=== PATIENT | male | born 1995 | race Caucasian/White ===

== ENCOUNTER 2020-10-07 04:24 | Emergency (ER) | payer OTHER, SELFPAY ==
--- NOTE | ~2020-10-07 | XR_ITS ---
EXAMINATION: XR chest 1V portable DATE: 10/07/2020 04:57 INDICATION: Upper respiratory tract infection. COVID exposure. Body aches. TECHNIQUE: frontal view of the chest was obtained. COMPARISON: Chest radiograph dated 07/16/2019 FINDINGS: The lungs remain clear with no focal airspace opacities, pulmonary edema, pleural effusion or pneumot horax. The cardiomediastinal silhouette is normal. Visualized bones and soft tissues are unremarkable . IMPRESSION: 1. No acute cardiopulmonary disease. Reviewed, dictated and finalized at location A.
[2020-10-07 04:27] VITALS: BP 117/61; PULSE 96; RESP 18; TEMP 35.2; O2SAT 97
[2020-10-07 04:32] VITALS: TEMP 36.7
--- NOTE | 2020-10-07 04:35 | ED.URI ---
HPI - URI/Sore Throat General Chief Complaint: Upper Respiratory Infection Stated Complaint: uri Time Seen by Provider: 10/07/20 04:26 History of Present Illness HPI Narrative: 25 yo male w/ no past medical history presents to the ED for URI symptoms. He has cough, congestion, body aches, nausea, and diarrhea. He has known exposure to and individual with COVID-19. No CP, SOB. Related Data Allergies Allergy/AdvReac Type Severity Reaction Status Date / Time No Known Allergies Allergy Mild Unverified 10/07/20 04:31 Review of Systems Review of Systems: All systems reviewed & are unremarkable except as noted in HPI and below Constitutional: Constitutional: Reports chills and Reports fatigue ENT: Denies dizziness and Denies sore throat Cardiovascular: Cardiovascular: Denies chest pain Respiratory: Respiratory: Reports chest congestion and Reports cough Gastrointestinal: Gastrointestinal: Reports diarrhea and Reports nausea Genitourinary: Genitourinary: Reports no additional male genitourinary complaints Musculoskeletal: Musculoskeletal: Reports myalgias Neurologic: Reports system reviewed and no additional complaints, except as documented [facility] Social History Social History Smoking status: Current every day smoker Gender identity (if verbalized by the patient): Male Sexual Orientation (if Verbalized by the Patient): Straight or Heterosexual Exam Const: General: no acute distress, alert and ill appearing Nutritional Appearance: thin Orientation/consciousness: patient oriented x3 HENMT: Head: normal to inspection Neck: Neck: normal visual inspection and lymphadenopathy noted Resp: Effort & Inspection: normal respiratory effort Auscultation: clear to auscultation bilaterally Cardio: Rate: regular rate Rhythm: regular rhythm GI: GI Palp: Yes Soft to palpation and No Tenderness to palpation present (GI) Skin: General skin exam: normal color Neuro: General: patient oriented x3, moves all extremities and no focal motor deficits Speech: normal speech Gait exam (Neuro): Normal gait present Extrem: General: normal to inspection Course Vital Signs Vital signs: Vital Signs Temperature 35.2 C L 10/07/20 04:27 Pulse Rate 96 10/07/20 04:27 Respiratory Rate 18 10/07/20 04:27 Blood Pressure 117/61 10/07/20 04:27 Pulse Oximetry 97 10/07/20 04:27 Temperature 36.7 C 10/07/20 04:32 Pulse Rate 96 10/07/20 04:27 Respiratory Rate 18 10/07/20 04:27 Blood Pressure 117/61 10/07/20 04:27 Pulse Oximetry 97 10/07/20 04:27 MDM - URI/Sore Throat MDM Narrative Medical decision making narrative: Positive for flu B Differential Diagnosis Differential diagnosis: Likely upper respiratory infection, viral infection, influenza and other (COVID) Lab Data Attestation: I reviewed the patient's lab results. Labs: Influenza A Screen Negative Reference Range: Negative Influenza B Screen Positive Reference Range: Negative Imaging Data My impression: Negative chest x-ray Discharge Plan Discharge Clinical Impression: Influenza B Patient Disposition: Home, Self-Care Condition: Stable Instructions: Influenza (ED) Prescriptions: New ondansetron HCl [Zofran] 4 mg tablet 4 mg PO Q6H PRN (Reason: nausea and vomiting) Qty: 10 RF: 0 naproxen 500 mg tablet 500 mg PO BID PRN (Reason: pain or fever) Qty: 30 RF: 0 Follow-up/Referrals: Smooth Carrero MD [Physician] - UNKNOWN,DOCTOR [Primary Care Provider] - Stand Alone Forms: Work/School Release IP
[2020-10-07] MEDS: KETOROLAC (*BKC) 60 MG/2 ML VIAL IM (04:55)
[2020-10-07] MEDS: ONDANSETRON HCL ODT 4 MG TABLET PO (04:56)
[2020-10-07 05:20] VITALS: BP 108/63; PULSE 71; RESP 16; TEMP 36.7; O2SAT 98
[2020-10-07 17:33] LABS: SARS-CoV-2 RNA PCR Negative
== END 2020-10-07 05:21 | disposition home or self-care (01) ==
LOC: ANHED 05:08
PROVIDERS: Emergency Provider Emergency Medicine
DX: J10.1 Influenza due to other identified influenza virus with other respiratory manifestations (principal); Z20.822 Contact with and (suspected) exposure to COVID-19; F17.200 Nicotine dependence, unspecified, uncomplicated
CPT/HCPCS: 71045; 87804; 99283; A9270; C9803; J1885; U0003; U0005

== ENCOUNTER 2023-03-13 04:03 | Emergency (ER) | payer MEDICAID, SELFPAY ==
--- NOTE | ~2023-03-13 | XR_ITS ---
EXAMINATION: XR elbow RT 2V DATE: 03/13/2023 05:16 INDICATION: Right elbow pain and redness and swelling. TECHNIQUE: 2 views of right elbow were obtained. COMPARISON: None. FINDINGS: Bone alignment is normal. No fracture. Joint spaces are normal. No elbow joint effusion. Th ere is soft tissue swelling overlying the olecranon, consistent with bursitis. IMPRESSION: 1. Olecranon bursitis. Reviewed, dictated and finalized at location A. IMPRESSION: 1. Olecranon bursitis.
[2023-03-13 04:15] VITALS: BP 138/83; PULSE 109; RESP 14; TEMP 36.7; O2SAT 99
[2023-03-13] MEDS: DOXYCYCLINE HYCLATE 100 MG TABLET PO (04:43)
[2023-03-13] MEDS: HYDROcodone/acetaminophen (*CRX) 5-325 MG TABLET 1 TAB PO (04:44)
[2023-03-13 04:48] LABS: Basophils Absolute Auto 0.1 K/mm3 (0.0-0.1); Basophils Percent Auto 0.5 % (0.2-1.2); Eosinophils Absolute Auto 0.1 K/mm3 (0-0.3); Eosinophils Percent Auto 0.9 % (0-4.4); Hematocrit 40.8 % (42.0-52.0); Hemoglobin 13.8 g/dL (14.0-18.0); Immature Granulocyte Absolute 0.03 K/mm3 (0.00-0.031); Immature Granulocyte Percent A 0.3 % (0-0.5); Lymphocytes Absolute Auto 2.85 K/mm3 (0.9-3.2); Lymphocytes Percent Auto 24.8 % (18.3-44.2); Mean Corpuscular HGB Conc 33.8 g/dl (32-36); Mean Corpuscular Hemoglobin 32.7 pg (26-34); Mean Corpuscular Volume 96.7 fl (80-100); Mean Platelet Volume 8.9 fl (7.4-10.4); Monocytes Absolute Auto 1.1 K/mm3 (0.1-0.6); Monocytes Percent Auto 9.6 % (2.6-8.5); Neutrophils Absolute Auto 7.4 K/mm3 (1.3-6.7); Neutrophils Percent Auto 63.9 % (45.5-73.1); Platelet Count Result 368 k/mm3 (150-375); Red Blood Count 4.22 M/mm3 (4.6-6.20); Red Cell Distribution Width 13.1 % (11.5-14.5); White Blood Count 11.5 K/mm3 (4.5-10.0)
[2023-03-13 04:59] LABS: Alanine Aminotransferase 25 U/L (6-50); Albumin Level 4.1 g/dL (3.5-5.1); Alkaline Phosphatase 45 U/L (38-126); Anion Gap 7 mmol/L (8-16); Aspartate Amino Transferase 32 U/L (17-59); Bilirubin,Total 0.3 mg/dL (0.2-1.3); Blood Urea Nitrogen 20 mg/dL (9-20); Calcium 8.4 mg/dL (8.4-10.2); Carbon Dioxide 29 mmol/L (22-30); Chloride 101 mmol/L (98-107); Estimated Glomerular Filt Rate > 60; Glucose 117 mg/dL (65-110); Potassium 3.9 mmol/L (3.4-5.0); Sodium 137 mmol/L (137-145)
--- NOTE | 2023-03-13 05:15 | ED.WOUNDLAC ---
HPI - Wound/Laceration General Chief Complaint: Wound/Laceration Stated Complaint: R elbow wound Time Seen by Provider: 03/13/23 04:22 History of Present Illness HPI narrative: Patient presents to the emergency department with concern for right elbow pain and swelling. He has a wound with focal fluctuance. Swelling noted but minimal erythema. Patient immediately stated that he does not do drugs . Then he says that things are crawling out of his elbow . Also points to his fingers with concern for decreased blood flow. Pulses are normal and cap refill is normal. He is accompanied by a friend with similar complaint Related Data Allergies Allergy/AdvReac Type Severity Reaction Status Date / Time No Known Allergies Allergy Mild Unverified 10/07/20 04:31 Review of Systems Review of Systems: Review of systems negative except for what is documented in the [facility] Social History Social History Smoking status: Current every day smoker Gender identity (if verbalized by the patient): Male Sexual Orientation (if Verbalized by the Patient): Straight or Heterosexual Exam Narrative: GENERAL: Well-appearing, well-nourished, and in no acute distress. HEAD: Normocephalic, atraumatic. EYES: PERRLA and EOMI. ENT: Nares clear, no rhinorrhea or epistaxis. Mucous membranes moist. NECK: Supple. CHEST: Clear to auscultation. No respiratory distress. HEART: Regular rate and rhythm. ABDOMEN: Soft, nontender, nondistended. EXTREMITIES: Normal range of motion. swelling and tenderness to right elbow with small fluctuance SKIN: Warm, dry, no rash. NEURO: No focal deficits. Alert and oriented x3. PSYCH: Normal mood and affect. Course Course Emergency Course: Presentation consistent with abscess and cellulitis. Inflammation localized to skin and does not involve entire elbow we will plan to drain Vital Signs Vital signs: Vital Signs Temperature 36.7 C 03/13/23 04:15 Pulse Rate 109 H 03/13/23 04:15 Respiratory Rate 14 03/13/23 04:15 Blood Pressure 138/83 03/13/23 04:15 Pulse Oximetry 99 03/13/23 04:15 Oxygen Delivery Room Air 03/13/23 04:15 Temperature 36.7 C 03/13/23 04:15 Pulse Rate 91 03/13/23 05:33 Respiratory Rate 14 03/13/23 05:33 Blood Pressure 135/82 03/13/23 05:33 Pulse Oximetry 100 03/13/23 05:33 Oxygen Delivery Room Air 03/13/23 04:15 Procedures Abscess I/D upper extremity: Date of Incision: 03/13/23 Side (if applicable): right Local Anesthetic: lidocaine 1% Amount of anesthesia used (mL): 1 Amount of fluid expressed (mL): 0 MDM - Wound/Laceration MDM Narrative Medical decision making narrative: Attempted to drain fluid from small area of induration on right elbow. No fluid present. Skin findings noted but superficial. Elbow joint not generally swollen. Patient afebrile and white count 11. Given doxycycline in the emergency department. Will DC with antibiotics and advised strict return precautions. Shared decision making with patient regarding plan for outpatient care. Lab Data 03/13/23 04:42 03/13/23 04:42 Labs: Lab Results 03/13/23 Range/Units 04:42 WBC 11.5 H (4.5-10.0) K/mm3 RBC 4.22 L (4.6-6.20) M/mm3 Hgb 13.8 L (14.0-18.0) g/dL Hct 40.8 L (42.0-52.0) % MCV 96.7 (80-100) fl MCH 32.7 (26-34) pg MCHC 33.8 (32-36) g/dl RDW 13.1 (11.5-14.5) % Plt Count 368 (150-375) k/mm3 MPV 8.9 (7.4-10.4) fl Immature Gran % (Auto) 0.3 (0-0.5) % Neut % (Auto) 63.9 (45.5-73.1) % Lymph % (Auto) 24.8 (18.3-44.2) % Owsley % (Auto) 9.6 H (2.6-8.5) % Eos % (Auto) 0.9 (0-4.4) % Baso % (Auto) 0.5 (0.2-1.2) % Lymph # (Auto) 2.85 (0.9-3.2) K/mm3 Owsley # (Auto) 1.1 H (0.1-0.6) K/mm3 Eos # (Auto) 0.1 (0-0.3) K/mm3 Baso # (Auto) 0.1 (0.0-0.1) K/mm3 Abs Immat Gran (auto) 0.03 (0.00-0.031)
[2023-03-13 05:33] VITALS: BP 135/82; PULSE 91; RESP 14; O2SAT 100
== END 2023-03-13 07:00 | disposition home or self-care (01) ==
PROVIDERS: Emergency Provider Emergency Medicine
DX: L02.413 Cutaneous abscess of right upper limb (principal); F17.200 Nicotine dependence, unspecified, uncomplicated
CPT/HCPCS: 10060; 36415; 73070; 80053; 85025; 87070; 87147; 87186; 87205; 99283; A9270

== ENCOUNTER 2023-04-02 18:48 | Emergency (ER) | payer MEDICAID, SELFPAY ==
--- NOTE | ~2023-04-02 | CT_ITS ---
EXAMINATION: CT abd pelvis lumbar w con DATE: 04/02/2023 20:05 INDICATION: fall from 7 feet onto back TECHNIQUE: Computed tomography (CT) of the abdomen and pelvis and lumbar spine was performed with 100 mL Omnipaque-350 intravenous contrast. Automated exposure control and iterative reconstruction techn ique were employed. The dose-length product was 412.53 mGy-cm. COMPARISON: CT T-spine performed on the same date. FINDINGS: Motion artifact in the upper abdomen. Lower thorax: Motion artifact obscures detail in the lungs. Liver: Evaluation somewhat limited by motion artifact. Grossly normal. Biliary/Gallbladder: Gallbladder is normal. No bile duct dilation. Pancreas: No mass or duct dilation. Spleen: Evaluation limited by motion artifact. No overt abnormality. Adrenals:No mass. Kidneys: No suspicious mass, obstructing stone, or hydronephrosis. GI tract: No small or large bowel dilation. Normal appendix. Mesentery/Peritoneum: No ascites, mass, or free air. Retroperitoneum: No mass. Pelvis: Pelvic organs are within normal limits. Soft Tissues: Soft tissues and body wall unremarkable. Bones (extraspinal): Mildly displaced left posterior 12th rib fracture. LUMBAR SPINE: Transitional anatomy. 6 nonrib-bearing lumbar-type vertebral bodies. The last fully formed disc will be designated L6-S1. Hypoplastic rib on the right and unfused transverse process on the left at L1. P artial sacralization on the left at L6. Vertebral body alignment and vertebral body heights maintaine d. Facets are aligned. Disc space narrowing at L6-S1. Nondisplaced left transverse process fractures at L2 and L3. IMPRESSION: Motion limited evaluation of the upper abdomen, particularly of the spleen. Within this constraint, n o definite perisplenic fluid, abdominopelvic fluid, or obvious splenic or other acute intra-abdominal injury. Nondisplaced left posterior 12th rib fracture. Transitional anatomy of the spine. Nondisplaced fractures of the left L2 and L3 transverse processes. Reviewed, dictated and finalized at location K. IMPRESSION: Motion limited evaluation of the upper abdomen, particularly of the spleen. Wit hin this constraint, no definite perisplenic fluid, abdominopelvic fluid, or ob vious splenic or other acute intra-abdominal injury. Nondisplaced left posterior 12th rib fracture. Transitional anatomy of the spine. Nondisplaced fractures of the left L2 and L3 transverse processes.
--- NOTE | ~2023-04-02 | XR_ITS ---
EXAMINATION: XR chest 1V Exam Date/Time: 04/02/2023 20:02 CDT HISTORY: fall Comparison: 10/07/2020. RESULT: Lines, tubes, and devices: None. Lungs and pleura: Clear. Cardiomediastinal silhouette: Stable. Other: No acute abdominal finding. Minimally displaced left posterior 12th rib fracture. IMPRESSION: No acute cardiopulmonary process. Minimally displaced left posterior 12th rib fracture Reviewed, dictated and finalized at location K. IMPRESSION: No acute cardiopulmonary process. Minimally displaced left posterior 12th rib f racture
--- NOTE | ~2023-04-02 | CT_ITS ---
EXAMINATION: CT cervical spine wo con DATE: 04/02/2023 19:54 INDICATION: fall, spinal injury TECHNIQUE: Computed tomography (CT) of the cervical spine was performed without intravenous contrast. Automated exposure control and iterative reconstruction technique were employed. The dose-length pro duct was 498.14 mGy-cm. COMPARISON: None. FINDINGS: Vertebral Body Alignment: Intact. Craniocervical and atlantoaxial alignment: No significant degenerative change. Alignment intact. Osseous structures/fracture: No evidence of a lytic or blastic process in the visualized spine. No e vidence of acute fracture. Cervical soft tissues: The paraspinal soft tissues planes are maintained. Degenerative changes: No significant degenerative changes. IMPRESSION: No acute fracture or traumatic malalignment in the cervical spine. Reviewed, dictated and finalized at location K.
--- NOTE | ~2023-04-02 | CT_ITS ---
EXAMINATION: CT thoracic spine wo con DATE: 04/02/2023 20:04 INDICATION: spinal injury . TECHNIQUE: Computed tomography (CT) of the thoracic spine was performed without intravenous contrast. Automated exposure control and iterative reconstruction technique were employed. The dose-length pro duct was 1474.39 mGy-cm. COMPARISON: CT C-spine and L-spine performed on the same date. FINDINGS: Transitional anatomy. 12 rib bearing thoracic type vertebral bodies. Hypoplastic rib on the right and unfused transverse process on the left at L1. Mildly displaced left posterior 12th rib fra cture. Vertebral body heights and alignment are maintained. Facets are aligned. Normal disc spaces. IMPRESSION: No acute fracture or traumatic malalignment detected in the thoracic spine. Mildly displaced left posterior 12th rib fracture. Reviewed, dictated and finalized at location K.
--- NOTE | ~2023-04-02 | CT_ITS ---
EXAMINATION: CT brain wo con DATE: 04/02/2023 19:51 INDICATION: fall . TECHNIQUE: Computed tomography (CT) of the head was performed without intravenous contrast. The mA wa s adjusted according to patient size. Iterative reconstruction technique was employed. The dose-lengt h product was 1210.67 mGy-cm. COMPARISON: None. FINDINGS: No acute intracranial hemorrhage or extra-axial fluid collection. No hydrocephalus, mass, or herniation. No acute ischemic infarct. Unremarkable dural venous sinus attenuation. No acute osseous abnormality. The aerated spaces are clear. IMPRESSION: No acute intracranial process. Reviewed, dictated and finalized at location K.
[2023-04-02 18:50] VITALS: BP 115/54; PULSE 82; RESP 19; TEMP 36.8; O2SAT 98
[2023-04-02 18:57] VITALS: O2SAT 98
[2023-04-02] MEDS: LACTATED RINGERS 1,000 ML 999 ML IV CONT (19:18)
[2023-04-02] MEDS: ONDANSETRON INJ 4 MG/2 ML VIAL IV PUSH (19:18)
[2023-04-02] MEDS: MORPHINE SULFATE (*CRX) 4 MG/ML INJ IV PUSH (19:18)
[2023-04-02 19:25] LABS: Basophils Percent Auto 0.5 % (0.2-1.2); Eosinophils Absolute Auto 0.1 K/mm3 (0-0.3); Eosinophils Percent Auto 1.1 % (0-4.4); Hematocrit 41.6 % (42.0-52.0); Immature Granulocyte Absolute 0.04 K/mm3 (0.00-0.031); Immature Granulocyte Percent A 0.5 % (0-0.5); Lymphocytes Absolute Auto 1.87 K/mm3 (0.9-3.2); Lymphocytes Percent Auto 21.3 % (18.3-44.2); Mean Corpuscular HGB Conc 33.7 g/dl (32-36); Mean Corpuscular Hemoglobin 32.6 pg (26-34); Mean Platelet Volume 9.6 fl (7.4-10.4); Monocytes Absolute Auto 0.6 K/mm3 (0.1-0.6); Monocytes Percent Auto 7.1 % (2.6-8.5); Neutrophils Absolute Auto 6.1 K/mm3 (1.3-6.7); Neutrophils Percent Auto 69.5 % (45.5-73.1); Platelet Count Result 385 k/mm3 (150-375); Red Blood Count 4.29 M/mm3 (4.6-6.20); Red Cell Distribution Width 12.9 % (11.5-14.5); White Blood Count 8.8 K/mm3 (4.5-10.0)
[2023-04-02 19:36] LABS: Alanine Aminotransferase 39 U/L (6-50); Albumin Level 4.3 g/dL (3.5-5.1); Alkaline Phosphatase 45 U/L (38-126); Anion Gap 10 mmol/L (8-16); Aspartate Amino Transferase 53 U/L (17-59); Bilirubin,Total 0.8 mg/dL (0.2-1.3); Blood Urea Nitrogen 16 mg/dL (9-20); Carbon Dioxide 24 mmol/L (22-30); Chloride 104 mmol/L (98-107); Estimated CRCL calculation 151 ml/min; Estimated Glomerular Filt Rate > 60; Glucose 104 mg/dL (65-110); Potassium 3.3 mmol/L (3.4-5.0); Sodium 138 mmol/L (137-145)
[2023-04-02 19:39] LABS: INR 1.1; Prothrombin Time 14.2 Seconds (11.1-14.7)
[2023-04-02 19:40] LABS: Partial Thromboplastin Time 24.1 SECONDS (22.3-36.8)
--- NOTE | 2023-04-02 19:55 | ED.GENADULT ---
HPI - General Adult General Chief complaint: Trauma Stated complaint: trauma, fall - back injury Time Seen by Provider: 04/02/23 18:57 Source: patient, EMS and RN notes reviewed Mode of arrival: EMS Limitations: no limitations History of Present Illness HPI narrative: This is a 28 year old male who presents for evaluation of left back pain s/p fall . PAtient was at his mother's house when he accidentally fall off stairs onto his his back. He states the stairs were 7 feet high. He denies LOC or hitting his head. He reports difficulty walking due to pain. He denies leg weakness, numbness or tingling. He reports pain with walking. He denies abdominal pain, chest pain, shortness of breath. He denies taking any medications. Related Data Allergies Allergy/AdvReac Type Severity Reaction Status Date / Time No Known Allergies Allergy Mild Verified 04/02/23 18:57 Review of Systems Constitutional: Constitutional: Denies weakness Cardiovascular: Cardiovascular: Denies syncope, Denies rapid heart rate, Denies irregular heart rhythm, Denies leg edema and Denies dyspnea Respiratory: Respiratory: Denies chest congestion, Denies hemoptysis, Denies excessive phlegm production and Denies dyspnea Gastrointestinal: Gastrointestinal: Denies abdominal pain, Denies hematochezia, Denies diarrhea and Denies vomiting Genitourinary: Genitourinary: Denies hematuria, Denies dysuria, Denies penile discharge and Denies testicular pain Musculoskeletal: Musculoskeletal: Reports back pain, Denies joint swelling, Denies loss of height and Denies muscle weakness Neurologic: Denies syncope, Denies focal weakness and Denies weakness PMFSH Past Medical History Medical History (Updated 04/03/23 @ 00:00 by Background Daemon) Patient denies medical problems Social History Social History Smoking status: Current every day smoker Gender identity (if verbalized by the patient): Male Sexual Orientation (if Verbalized by the Patient): Straight or Heterosexual Exam Const: General: no acute distress and alert Nutritional Appearance: well nourished Orientation/consciousness: patient oriented x3 HENMT: Head: normal to inspection Face and sinus: normal facial exam Mouth: Yes Normal oral and palatal mucosa present, Yes lip normal and Yes moist mucous membranes Throat: posterior oropharynx normal and uvula midline Other: tattoos to his face Eyes: Pupils: Equal, round and reactive pupils present EOM: EOMs intact bilaterally Neck: Other: in c collar Chest: Chest palpation & inspection: normal inspection of the chest Resp: Effort & Inspection: normal respiratory effort Auscultation: clear to auscultation bilaterally Cardio: Rate: regular rate Rhythm: regular rhythm Heart sounds: no murmurs GI: GI Palp: Yes Soft to palpation, No Tenderness to palpation present (GI), No Guarding due to palpation present (GI) and No Rigid due to palpation Auscultation: normal bowel sounds Back/Spine/Pelvis: Cervical Spine: collar present, No cervical muscular tenderness and No Cervical spine tenderness Thoracic/Lumbar Spine: lumbar spinal tenderness Pelvis: no pain with anterior-posterior compression and no pain with lateral compression Skin: General skin exam: normal color Neuro: General: patient oriented x3, moves all extremities and CN's II-XI intact bilaterally Extrem: General: normal to inspection Psych: Mental Status: mental status grossly normal Affect: normal affect Attitude: cooperative Course Reevaluation(s) Reevaluation #1: I Discussed with patient that he was found to have 12 rib fracture and transverse process fracture to L2-L3, no other acute fracture. I discussed with patient that main treatment is pain control. He states he is in a lot of pain but he refuses admission. He was able to ambulate per nurse with crutches. He states is not going to get admitted Date: 04/02/23 Time:
[2023-04-02] MEDS: HYDROmorphone HCL INJ (*CRX) 1 MG/ML SYR 0.5 MG IV PUSH (20:19)
[2023-04-02] MEDS: oxyCODONE/ACETAMINOPHEN (*CRX) 5-325 MG TABLET 1 TABLET PO (22:37)
[2023-04-02 22:53] VITALS: BP 148/82; PULSE 99; RESP 15; O2SAT 100
== END 2023-04-02 22:54 | disposition home or self-care (01) ==
PROVIDERS: Emergency Provider General Practice
DX: S22.32XA Fracture of one rib, left side, initial encounter for closed fracture (principal); S32.029A Unspecified fracture of second lumbar vertebra, initial encounter for closed fracture; S32.039A Unspecified fracture of third lumbar vertebra, initial encounter for closed fracture; W10.9XXA Fall (on) (from) unspecified stairs and steps, initial encounter; F17.210 Nicotine dependence, cigarettes, uncomplicated
CPT/HCPCS: 36415; 70450; 71045; 72125; 72128; 72132; 74177; 80053; 85025; 85610; 85730; 96361; 96374; 96375; 99284; A9270; J1170; J2270; J2405; J7120; L0140; Q9967

== ENCOUNTER 2025-05-14 13:02 | Emergency (ER) | payer MEDICAID, SELFPAY ==
--- OUTSIDE RECORDS SUMMARY | 2025-04-21 10:00 | XMS_ITS ---
Author Organization [facility] Address [address] [place] [address] Care Team Providers Care Education Consultant Name Role Phone Kashmir Benoit Primary Care Provider [phone] Christelle Galdamez [phone] REASON FOR VISIT 2 Week F/U on CRU Social History Sex Assigned At : Social History Observation Description Sex Assigned At Male Encounters Encounter Location Date Provider Diagnosis [facility] [address] [place] [address] 04/21/2025 Christelle Galdamez Plan Of Treatment Next Appt Details Provider Name:Ernesto vora, 05/21/2025 10:00:00 AM, [address], [place], [address], Progress Notes * Lisbet SPIVEYOB:[birth year] (30 yo M)Acc No.[id number]:04/21/2025 UNLOCKED PROGRESS NOTE Patient: Jim GUIDRY Provider: Mora Galdamez, MSN, ROOFING SALES REPRESENTATIVE, BUSINESS PROFESSOR-C :1995 A ge:30 Y S ex:Male Date:04/21/2025 Address:[facility] [place], [place] Pcp:Kashmir Benoit Subjective: * Chief Complaints: * 1 . 2 Week F/U on CRU. * Medical History: Objective: * Vitals: Assessment: Plan: * Treatment: * Care Plan Details* * Electronic signature of Krysta Galdamez APRN, [id number] on 05/14/2025 at 07:50 PM [facility] Sign off status: Pending * Provider: ANETTE Vega, DAVIE, BUSINESS PROFESSOR-C Date: Generated for Kamaljit gramajo/Juanjo/Andrew on: 07/14/2024 07:50 PM [facility]
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
--- NOTE | ~2025-05-14 | XR_ITS ---
Examination: XR chest 2V Clinical History: cp, LT SIDED CP, HEADACHE Comparison: 04/02/2023 Technique: PA and Lateral Findings: Cardiomediastinal silhouette normal size and configuration. Lungs clear. No acute bony abnormality. IMPRESSION: 1. No acute cardiopulmonary findings. Reviewed, dictated and finalized at location R. TRON[employer] NEWS GATHERING EDITOR
--- NOTE | 2025-05-14 13:02 | ECG_ITS ---
Test Date: 2025-05-14 13:09:41 Measurements Intervals [place] Rate: 84 P: 44 [place]: 127 QRS: 29 QRSD: 86 T: 21 QT: 327 QTc: 388 Interpretive Statements SINUS RHYTHM No previous ECG available for comparison Electronically Signed On 05-14-2025 13:37:00 INSPECTOR AND HAND PACKAGER by Steven Chew M.D.
[2025-05-14 13:07] VITALS: BP 116/66; PULSE 92; RESP 18; TEMP 36.8; O2SAT 99
[2025-05-14 14:21] LABS: Hematocrit 34.6 % (42.0-52.0); Hemoglobin 11.7 g/dL (14.0-18.0); Immature Granulocyte Percent A 0.4 % (0-0.5); Lymphocytes Absolute Auto 2.38 K/mm3 (0.9-3.2); Mean Corpuscular HGB Conc 33.8 g/dl (32-36); Mean Corpuscular Hemoglobin 31.5 pg (26-34); Mean Corpuscular Volume 93.0 fl (80-100); Nucleated Red Blood Cells Absolute Auto 0.000 K/mm3 (0.0-0.012); Nucleated Red Blood Cells Perc 0.0 % (0.0-0.2); Platelet Count Result 313 k/mm3 (150-375); Red Blood Count 3.72 M/mm3 (4.6-6.20); White Blood Count 7.3 K/mm3 (4.5-10.0)
[2025-05-14 14:30] LABS: Alanine Aminotransferase 89 U/L (6-50); Albumin Level 4.2 g/dL (3.5-5.1); Alkaline Phosphatase 49 U/L (38-126); Anion Gap 7 mmol/L (4-12); Aspartate Amino Transferase 67 U/L (17-59); Bilirubin,Total 0.5 mg/dL (0.2-1.3); Blood Urea Nitrogen 22 mg/dL (9-20); Calcium 9.0 mg/dL (8.4-10.2); Carbon Dioxide 27 mmol/L (22-30); Chloride 100 mmol/L (98-107); Estimated CRCL calculation 115 ml/min; Estimated Glomerular Filt Rate > 60; Glucose 91 mg/dL (65-110); INR 1.1; Lipase 29 U/L (23-300); Potassium 4.8 mmol/L (3.4-5.0); Prothrombin Time 14.0 Seconds (11.1-14.7); Sodium 134 mmol/L (137-145); Total Protein 7.0 g/dL (6.3-8.2)
[2025-05-14 14:31] LABS: Partial Thromboplastin Time 28.1 Seconds (22.3-36.8)
[2025-05-14 14:42] LABS: Troponin I < 0.012 ng/mL (0.000-0.034)
--- NOTE | 2025-05-14 15:13 | ED.CHESTPAIN ---
HPI - Chest Pain General Chief Complaint: Chest Pain <Little Bhardwaj PA-C - Last Filed: 05/16/25 14:15> Stated Complaint: cp, sob <Little Bhardwaj PA-C - Last Filed: 05/16/25 14:15> Time Seen by Provider: 05/14/25 15:13 <Little Bhardwaj PA-C - Last Filed: 05/16/25 14:15> Focused HPI: This is a 30 year old male that presents to the ER for chest pain. Reports left sided chest pain with associated shortness of breath. Ongoing over the last couple of hours. Reports the pain is sharp in nature. Also reports a headache. GENERAL: Well-appearing, well-nourished, and in no acute distress. HEAD: Normocephalic, atraumatic. CHEST: No respiratory distress. HEART: Regular rate NEURO: ?Alert and oriented x3. Patient screened in triage and initial orders placed.? ?Additional care and disposition to be based upon?diagnostic testing and treatment. <Little Bhardwaj PA-C - Last Filed: 05/16/25 14:15> History of Present Illness HPI narrative: Agree with HPI. Pain has improved significantly on my evaluation. Chest pain was pleuritic in nature. <DO Jessa Don Last Filed: 05/14/25 23:11> Related Data Allergies/Adverse Reactions: Allergies Allergy/AdvReac Type Severity Reaction Status Date / Time No Known Allergies Allergy Mild Verified 05/14/25 13:10 <Little Bhardwaj PA-C - Last Filed: 05/16/25 14:15> Review of Systems Review of Systems: Gen.: Denies fevers or chills Eyes: Denies eye pain or visual change ENT: Denies congestion Respiratory: As per HPI CV: As per HPI GI: Denies abdominal pain nausea, emesis or diarrhea denies burning, urgency, frequency or hematuria Musculoskeletal: Denies back pain or muscle pain Neuro: Denies numbness, tingling, weakness or focal weakness Skin: Denies rash Except as documented, all other systems reviewed and negative <Patric Gonzales DO - Last Filed: 05/14/25 23:11> PMFSH Past Medical History Medical History: Medical History History of anxiety History of depression <Little Bhardwaj PA-C - Last Filed: 05/16/25 14:15> Social History Social History: Social History Smoking status: Current every day smoker Tobacco type: e-cigarettes/vaping Substance use: former Gender identity (if verbalized by the patient): Male Sexual Orientation (if Verbalized by the Patient): Straight or Heterosexual <Little Bhardwaj PA-C - Last Filed: 05/16/25 14:15> Exam Narrative: APPEARANCE: No acute distress, nontoxic, resting in bed EYES: EOMI HEENT: Normocephalic, atraumatic, OMM RESPIRATORY: No respiratory distress Clear to auscultation bilaterally with no rhonchi wheezing or rales. CARDIOVASCULAR: Regular rate and rhythm without murmurs rubs or gallops. Mild lower sternal chest wall tenderness to palpation. ABDOMINAL: Soft, nontender, nondistended, no rebound or guarding MUSCULOSKELETAl: Moves all extremities. No clubbing, cyanosis or edema. NEURO: Awake and alert. Following commands, speech normal, no focal deficits SKIN:: Warm, dry. No rashes lesions or abrasions PSYCHIATRIC: Normal affect/mood, <Patric Gonzales DO - Last Filed: 05/14/25 23:11> Course Vital Signs Vital signs: Vital Signs Temperature 98.2 F 05/14/25 13:07 Pulse Rate 92 05/14/25 13:07 Respiratory Rate 18 05/14/25 13:07 Blood Pressure 116/66 05/14/25 13:07 Pulse Oximetry 99 05/14/25 13:07 Oxygen Delivery Room Air 05/14/25 13:07 Temperature 98.2 F 05/14/25 13:07 Pulse Rate 79 05/14/25 17:12 Respiratory Rate 17 05/14/25 17:12 Blood Pressure 108/70 05/14/25 17:12 Pulse Oximetry 97 05/14/25 17:12 Oxygen Delivery Room Air 05/14/25 16:55 <Little Bhardwaj PA-C - Last Filed: 05/16/25 14:15> Vital Signs Temperature 98.2 F 05/14/25 13:07 Pulse Rate 92 05/14/25 13:07 Respiratory Rate 18 05/14/25 13:07 Blood Pressure 116/66 05/14/25 13:07 Pulse Oximetry 99 05/14/25 13:07 Oxygen Delivery Room Air 05/14/25 13:07 Temperature 98.2 F 05/14/25 13:07 Pulse Rate 79 05/14/25 17:12 Respiratory Rate 17 05/14/25 17:12 Blood Pressure 108/70 05/14/25 17:12 Pulse Oximetry 97 05/14/25 17:12 Oxygen Delivery Room Air 05/14/25 16:55 <Patric Gonzales DO - Last Filed: 05/14/25 23:11> MDM - Chest Pain MDM Narrative Medical decision making narrative: 30-year-old male Presenting for chest pain and anxiety. On initial evaluation patient was in no acute distress afebrile, hemodynamic stable. Differentials include but are not limited to: ACS, PE, PNA, bronchitis, costochondritis, pleurisy, viral syndrome, GERD Notable exam findings: Heart and lungs clear. Abdomen soft nontender. Notable lab findings: CBC without significant abnormalities. Mildly elevated transaminases. Troponin negative. Repeat troponin negative. Notable imaging findings: Chest x-ray showed no acute process. EKG without concerning findings. Patient ordered already had near resolution of his starks. He states that something he had tenderness to the lower sternum. He was given Toradol and Lidoderm. Patient's EKGs and labs are without significant high risk changes. Cardiac risk factors reviewed. Patient is felt likely low risk for ACS and reasonable for further risk stratification testing as an outpatient. Pain was not sudden or maximal in onset without tearing or ripping quality. No other signs of symptoms suggest aortic dissection. A low-risk Wells criteria is noted, PE is felt to be unlikely. No pneumonia seen on evaluation today. Patient is felt to be a reasonable candidate for continued evaluation as an outpatient. Patient was deemed appropriate for discharge at this time. Patient was given a prescription for Lidoderm. Patient was advised follow-up with their PCP in the next week for re-evaluation. Patient was agreeable to this plan. Given strict return precautions. <Patric Gonzales DO - Last Filed: 05/14/25 23:11> Medical Records Data Attestation: I reviewed the patient's medical records. <Patric Gonzales DO - Last Filed: 05/14/25 23:11> Lab Data Attestation: I reviewed the patient's lab results. <Patric Gonzales DO - Last Filed: 05/14/25 23:11> Result diagrams: 05/14/25 14:06 05/14/25 14:06 <Little Bhardwaj PA-C - Last Filed: 05/16/25 14:15> Labs: Lab Results 05/14/25 05/14/25 Range/Units 14:06 16:58 WBC 7.3 (4.5-10.0) K/mm3 RBC 3.72 L (4.6-6.20) M/mm3 Hgb 11.7 L (14.0-18.0) g/dL Hct 34.6 L (42.0-52.0) % MCV 93.0 (80-100) fl MCH 31.5 (26-34) pg MCHC 33.8 (32-36) g/dl RDW 13.0 (11.5-14.5) % Plt Count 313 (150-375) k/mm3 MPV 9.1 (7.4-10.4) fl Immature Gran % (Auto) 0.4 (0-0.5) % Neut % (Auto) 54.2 (45.5-73.1) % Lymph % (Auto) 32.7 (18.3-44.2) % Collier % (Auto) 9.1 H (2.6-8.5) % Eos % (Auto) 3.0 (0-4.4) % Baso % (Auto) 0.6 (0.2-1.2) % Lymph # (Auto) 2.38 (0.9-3.2) K/mm3 Collier # (Auto) 0.7 H (0.1-0.6) K/mm3 Eos # (Auto) 0.2 (0-0.3) K/mm3 Baso # (Auto) 0.0 (0.0-0.1) K/mm3 Abs Immat Gran (auto) 0.03 (0.00-0.031) K/mm3 Absolute Neuts (auto) 3.9 (1.3-6.7) K/mm3 Absolute Nucleated RBC 0.000 (0.0-0.012) K/mm3 Nucleated RBC % 0.0 (0.0-0.2) % PT 14.0 (11.1-14.7) Seconds INR 1.1 APTT 28.1 (22.3-36.8) Seconds Sodium 134 L (137-145) mmol/L Potassium 4.8 (3.4-5.0) mmol/L Chloride 100 (98-107) mmol/L Carbon Dioxide 27 (22-30) mmol/L Anion Gap 7 (4-12) mmol/L BUN 22 H (9-20) mg/dL Creatinine 0.78 (0.7-1.3) mg/dL Estim Creat Clear Calc 115 ml/min Estimated GFR > 60 (59 - ) Glucose 91 (65-110) mg/dL Calcium 9.0 (8.4-10.2) mg/dL Total Bilirubin 0.5 (0.2-1.3) mg/dL AST 67 H (17-59) U/L ALT 89 H (6-50) U/L Alkaline Phosphatase 49 (38-126) U/L Troponin I < 0.012 < 0.012 (0.000-0.034) ng/mL Total Protein 7.0 (6.3-8.2) g/dL Albumin 4.2 (3.5-5.1) g/dL Lipase 29 (23-300) U/L <Little Bhardwaj PA-C - Last Filed: 05/16/25 14:15> Lab Results 05/14/25 05/14/25 Range/Units 14:06 16:58 WBC 7.3 (4.5-10.0) K/mm3 RBC 3.72 L (4.6-6.20) M/mm3 Hgb 11.7 L (14.0-18.0) g/dL Hct 34.6 L (42.0-52.0) % MCV 93.0 (80-100) fl MCH 31.5 (26-34) pg MCHC 33.8 (32-36) g/dl RDW 13.0 (11.5-14.5) % Plt Count 313 (150-375) k/mm3 MPV 9.1 (7.4-10.4) fl Immature Gran % (Auto) 0.4 (0-0.5) % Neut % (Auto) 54.2 (45.5-73.1) % Lymph % (Auto) 32.7 (18.3-44.2) % Collier % (Auto) 9.1 H (2.6-8.5) % Eos % (Auto) 3.0 (0-4.4) % Baso % (Auto) 0.6 (0.2-1.2) % Lymph # (Auto) 2.38 (0.9-3.2) K/mm3 Collier # (Auto) 0.7 H (0.1-0.6) K/mm3 Eos # (Auto) 0.2 (0-0.3) K/mm3 Baso # (Auto) 0.0 (0.0-0.1) K/mm3 Abs Immat Gran (auto) 0.03 (0.00-0.031) K/mm3 Absolute Neuts (auto) 3.9 (1.3-6.7) K/mm3 Absolute Nucleated RBC 0.000 (0.0-0.012) K/mm3 Nucleated RBC % 0.0 (0.0-0.2) % PT 14.0 (11.1-14.7) Seconds INR 1.1 APTT 28.1 (22.3-36.8) Seconds Sodium 134 L (137-145) mmol/L Potassium 4.8 (3.4-5.0) mmol/L Chloride 100 (98-107) mmol/L Carbon Dioxide 27 (22-30) mmol/L Anion Gap 7 (4-12) mmol/L BUN 22 H (9-20) mg/dL Creatinine 0.78 (0.7-1.3) mg/dL Estim Creat Clear Calc 115 ml/min Estimated GFR > 60 (59 - ) Glucose 91 (65-110) mg/dL Calcium 9.0 (8.4-10.2) mg/dL Total Bilirubin 0.5 (0.2-1.3) mg/dL AST 67 H (17-59) U/L ALT 89 H (6-50) U/L Alkaline Phosphatase 49 (38-126) U/L Troponin I < 0.012 < 0.012 (0.000-0.034) ng/mL Total Protein 7.0 (6.3-8.2) g/dL Albumin 4.2 (3.5-5.1) g/dL Lipase 29 (23-300) U/L <Patric Gonzales DO Last Filed: 05/14/25 23:11> Imaging Data Attestation: I personally reviewed and interpreted this imaging study as follows: <Patric Gonzales Last Filed: 05/14/25 23:11> My impression: Chest x-ray: Normal cardiac silhouette, no consolidations, no pleural effusions, no pulmonary vascular congestion <Patric Gonzales Last Filed: 05/14/25 23:11> Radiologist's impression: Impressions Chest X-Ray 05/14/25 13:49 IMPRESSION: 1. No acute cardiopulmonary findings. <Patric Gonzales Last Filed: 05/14/25 23:11> ECG Data EKG #1: Attestation: I personally reviewed and interpreted this ECG as follows: <Patric Montaguerosalinddebbie Last Filed: 05/14/25 23:11> ECG completion date: 05/14/25 <Patric Montaguemaciej Last Filed: 05/14/25 23:11> ECG completion time: 13:09 <Patric Christian Last Filed: 05/14/25 23:11> Interpretation: Normal sinus rhythm, normal axis, normal intervals, no acute ST or T-wave changes <Patric Gonzales Last Filed: 05/14/25 23:11> Discharge Plan Discharge Clinical Impression: Chest pain Qualifiers: Chest pain type: unspecified Qualified Code(s): R07.9 - Chest pain, unspecified <Little Bhardwaj PA-C - Last Filed: 05/16/25 14:15> Patient Disposition: Home <Little Bhardwaj PA-C - Last Filed: 05/16/25 14:15> Condition: Stable <RODRIGUEZ Alonso Last Filed: 05/16/25 14:15> Instructions: Antibiotic Form, Chest Wall Pain (ED) <Little Bhardwaj PA-C - Last Filed: 05/16/25 14:15> Additional Instructions: Lab work and imaging showed no evidence of heart damage at this time. You may take Tylenol and ibuprofen for your pain. Follow up with your PCP in the next week for reevaluation. Return to the ED for new or worsening symptoms. <Little Bhardwaj PA-C - Last Filed: 05/16/25 14:15> Patient Language: Lithuanian <Little Bhardwaj PA-C - Last Filed: 05/16/25 14:15> Prescriptions: New lidocaine [Lidoderm] 5 % adhesive patch,medicated 1 patch topical DAILY Qty: 15 0RF Rx Instructions: leave on most painful area for up to 12 hrs No Action tramadol 50 mg tablet 50 mg PO Q6H MDD 4 tabs PRN (Reason: pain) Qty: 14 0RF doxycycline hyclate 100 mg capsule 100 mg PO DAILY Qty: 14 0RF ondansetron HCl [Zofran] 4 mg tablet 4 mg PO Q6H PRN (Reason: nausea and vomiting) Qty: 10 0RF naproxen 500 mg tablet 500 mg PO BID PRN (Reason: pain or fever) Qty: 30 0RF ibuprofen 600 mg tablet 600 mg PO QID PRN (Reason: pain) Qty: 20 0RF oxycodone-acetaminophen [Percocet] 5-325 mg tablet 1 tablet PO Q6H PRN (Reason: pain) Qty: 14 0RF methocarbamol 750 mg tablet 750 mg PO TID Qty: 14 0RF oxycodone-acetaminophen [Percocet] 5-325 mg tablet 1 tablet PO Q6H PRN (Reason: pain) Qty: 14 0RF <Little Bhardwaj PA-C - Last Filed: 05/16/25 14:15> Follow-up/Referrals: Kit Mart MD [Physician, Family Practice] PHYSICIAN,CANDY FEEDER [Primary Care Provider, Internal Medicine] <Little Bhardwaj PA-C - Last Filed: 05/16/25 14:15>
[2025-05-14 15:34] VITALS: BP 105/59; PULSE 74; RESP 13; O2SAT 97
[2025-05-14 15:36] VITALS: BP 105/59; PULSE 71; PULSE 72; RESP 13; O2SAT 97
[2025-05-14 16:55] VITALS: O2SAT 98
--- NOTE | 2025-05-14 16:55 | ECG_ITS ---
Test Date: 2025-05-14 16:55:33 Measurements Intervals [place] Rate: 71 P: 51 [place]: 141 QRS: 23 QRSD: 90 T: 20 QT: 359 QTc: 392 Interpretive Statements SINUS RHYTHM Compared to ECG 05/14/2025 13:09:41 No significant changes Electronically Signed On 05-15-2025 10:03:19 MEDICAL DOSIMETRIST by Tomás Srinivasan D.O
[2025-05-14 17:12] VITALS: BP 108/70; PULSE 79; RESP 17; O2SAT 97
[2025-05-14 17:41] LABS: Troponin I < 0.012 ng/mL (0.000-0.034)
[2025-05-14] MEDS: KETOROLAC 30 MG/ML VIAL (*BKC) IV PUSH (17:45)
[2025-05-14] MEDS: LIDOCAINE 5% PATCH 1 PATCH TRANSDERM (17:46)
--- OUTSIDE RECORDS SUMMARY | 2025-05-14 19:51 | XMS_ITS | Clinical Summary ---
Author Organization [facility] Address [address] [place] [address] Phone Care Team Providers Care Life Coach Name Role Phone Unavailable Primary Care Provider Unavailabl e Medications ibuprofen (MOTRIN) 800 mg tablet Take 800 mg by mouth every 6 hours as needed for Pain, Mild. Active acetaminophen (TYLENOL) 325 mg tablet Take 2 Tablets (650 mg) by mouth every 4 hours. 04/06/2023 Active methocarbamoL (ROBAXIN) 500 mg tablet Take 1 Tablet (500 mg) by mouth every 8 hours. 10 Tablet 04/06/2023 Active oxyCODONE (ROXICODONE) 5 mg tabletIndicatio ns:Closed fracture of one rib of left side, initial encounter Take 1 Tablet (5 mg) by mouth every 4 hours as needed for Pain, Moderate. Max Daily Amount: 30 mg 10 Tablet 04/06/2023 Active Active Problems Problem Noted Date Diagnosed Date Closed fracture of one rib of left side 04/06/20 23 Lumbar transverse process fr acture, closed, initial encounter 04/05/2023 Family History Medical History Relation Name Comments Rectal Cancer Maternal Grandfather Throat Cancer Maternal Grandmother COPD Paternal Grandfather Diabetes Paternal Grandfather Lung Cancer Paternal Grandmother Relation Name Status Comments Father Alive Maternal Grandfather Maternal Grandmother Mother Alive Paternal Grandfather Alive Paternal Grandmother Social History Tobacco Use Types Packs/Day Years Used Date Smoking Tobacco: Former Cigarettes Tobacco Cessation:Counseling Given: Not Answered Alcohol Use Standard Drinks/Week Comments Yes 18 (1 standard drink = 0.6 oz pure alcohol) 4-8 shots/day, 3-4 days per wk Feeling Safe Answer Date Recorded Are you in a relationship wi th someone who hurts you emotionally and/or physically? No 04/05/2023 Sex and Gender Information Value Date Recorded Sex Assigned at Not on file Legal Sex Male 10:58 AM CDT Gender Identity Not on file Sexual Orientation Not on file Last Filed Vital Signs Vital Sign Reading Time Taken Comments Blood Pressure 118/63 04/06/2023 1:00 PM CDT Pulse 74 04/06/2023 1:00 PM CDT Temperature 36.6 C (97.9 F) 04/06/2023 12:00 PM CDT Respiratory Rate 15 04/06/2023 1:00 PM CDT Oxygen Saturation 98% 04/06/2023 1:00 PM CDT Inhaled Oxygen Concentration - - Weight 81.6 kg (180 lb) 04/06/2023 8:26 AM CDT Height 172.7 cm (5' 8) 04/06/2023 8:26 AM CDT Body Mass Index 27.37 04/06/2023 8:26 AM CDT Plan of Treatment Health Maintenance Due Date Last Done Comments DTAP/TDAP/TD VACCINES (1 - Tdap) 02/15/2016 HEPATITIS B VACCINES (1 of 3 - 19+ 3-dose series) 03/2016 HPV VACCINES (1 - 3-dose SCDM series) 02/15/2024 INFLUENZA VACCINE (#1) 2025 Advance Directives For more information, please contact: [phone] * Full Code (Latest Code Status on File) Date Activated Date Inactivated Comments 04/05/2023 3:32 PM 04/06/2023 7:02 PM
--- OUTSIDE RECORDS SUMMARY | 2025-05-14 19:51 | XMS_ITS | Patient Health Record ---
Author Organization [facility] Address [address] [place] [address] Care Team Providers Care Cake Decorator Name Role Phone Cy Kashmir Primary Care Provider [phone] Christelle Galdamez Unavailable [phone] Benito Jones Unavailable [phone] Bertha Bolton Unavailable [phone] Lacy Woodall Unavailable [phone] Camelia Gomez Unavailable [phone] Ernesto Jaime Unavailable [phone] Radha Becker Unavailable [phone] Allergies No Known Allergies Results Component Value Reference Range Notes HIV Screen *HIV 1, 2 Ab, p24 Ag ([id number]) Reviewed date:11/04/2024 03:21:47 PM Interpretation:Normal Performing Lab:[facility], [address] [facility], Phone - [phone], [facility] - [facility] Notes/Report: HIV Ab/p24 Ag Screen Non Reactive Non Reactive HIV-1/HIV-2 antibodies and HIV-1 p24 antigen were NOT detected. There is no laboratory evidence of HIV infection. HIV Negative CBC With Differential/Platel et* Reviewed date:11/04/2024 03:21:47 PM Interpretation:Normal Performing Lab:[facility] [place], [address] [facility], Phone - [phone], Director - [facility] Notes/Report: WBC 6.2 3.4-10.8 x10E3/uL RBC 4.61 4.14-5.80 x10E6/uL Hemoglobin 14.1 13.0-17.7 g/dL Hematocrit 43.5 37.5-51.0 % MCV 94 79-97 fL MCH 30.6 26.6-33.0 pg MCHC 32.4 31.5-35.7 g/dL RDW 11.8 11.6-15.4 % Platelets 320 150-450 x10E3/uL Neutrophils 34 Not Estab. % Lymphs 51 Not Estab. % Monocytes 9 Not Estab. % Eos 5 Not Estab. % Basos 1 Not Estab. % Neutrophils (Absolute) 2.1 1.4-7.0 x10E3/uL Lymphs (Absolute) 3.1 0.7-3.1 x10E3/uL Monocytes(Absolute) 0.6 0.1-0.9 x10E3/uL Eos (Absolute) 0.3 0.0-0.4 x10E3/uL Baso (Absolute) 0.1 0.0-0.2 x10E3/uL Immature Granulocytes 0 Not Estab. % Immature Grans (Abs) 0.0 0.0-0.1 x10E3/uL CMP 14 Comprehensive Metabol ic Panel* Reviewed date:11/04/2024 03:21:47 PM Interpretation: Performing Lab:[facility] [place], [address] [facility], [place], Phone - [phone], Director - Perez Notes/Report: Glucose 60 70-99 mg/dL BUN 13 6-20 mg/dL Creatinine 0.74 0.76-1.27 mg/dL eGFR 127 >59 mL/min/1.73 BUN/Creatinine Ratio 18 9-20 Sodium 139 134-144 mmol/L Potassium 3.9 3.5-5.2 mmol/L Chloride 100 96-106 mmol/L Carbon Dioxide, Total 24 20-29 mmol/L Calcium 9.4 8.7-10.2 mg/dL Protein, Total 6.7 6.0-8.5 g/dL Albumin 4.4 4.3-5.2 g/dL Globulin, Total 2.3 1.5-4.5 g/dL Bilirubin, Total 0.2 0.0-1.2 mg/dL Alkaline Phosphatase 57 44-121 IU/L AST (SGOT) 23 0-40 IU/L ALT (SGPT) 11 0-44 IU/L Hepatitis C Virus (HCV), Elkin ntitative, RNA PCR (Nongraphical) With Reflex to Genotyping Reviewed date:11/04/2024 03:21:47 PM Interpretation:Normal Performing Lab:[address], Phone - [phone], Director - [facility] Notes/Report: Hepatitis C Quantitation HCV Not Detected HCV log10 TNP Unable to calculate result since non-numeric result obtained for component test. Test Information: The quanti tative range of this assay is 15 IU/mL to 100 million IU/mL. HCV Genotype TNP Not indicated QuantiFERON-TB Gold Plus ([id number]) Reviewed date:11/04/2024 03:21:47 PM Interpretation:Normal Performing Lab:[address], Phone - [phone], Director - [facility] Notes/Report: QuantiFERON Incubation Incubation performed. QuantiFERON-TB Gold Plus Negative Negative No response to M tuberculosis antigens detected. Infection with M tuberculosis is unlikely, but high risk individuals should be considered for additional testing (ATS/IDSA/CDC Clinical Practice Guidelines, 2017). The reference range is an Antigen minus Nil result of <0.35 IU/mL. Chemiluminescence immunoassay methodology QuantiFERON Criteria QuantiFERON-TB Gold Plus is a qualitative indirect test for M tuberculosis infection (including disease) and is intended for use in conjunction with risk assessment, radiography, and other medical and diagnostic evaluations. The QuantiFERON-TB Gold Plus result is determined by subtracting the Nil value from either TB antigen (Ag) value. The Mitogen tube serves as a control for the test. QuantiFERON TB1 Ag Value 0.04 QuantiFERON TB2 Ag Value 0.06 QuantiFERON Nil Value 0.05 QuantiFERON Mitogen Value >10.00 Rapid Plasma Reagin (RPR) Te st With Reflex to Quantitative RPR and Confirmatory Treponema pallidum Antibodies Reviewed date:11/04/2024 03:21:47 PM Interpretation:Abnormal Performing Lab:[facility], [facility], Phone - [phone], Director - [facility] Notes/Report: RPR Reactive Non Reactive RPR, Quant. 1:8 NonRea<1:1 titer Treponema pallidum Antibodies Reactive Non Reactive Interpretation: Syphilis: RPR with Reflex to RPR Titer and Treponemal Antibodies, Traditional Screening and Diagnosis Algorithm Treponemal RPR RPR, Qn Ab Final Interpretation -------- --------- Non N/A N/A No laboratory evidence Reactive of syphilis. Retest in 2-4 weeks if recent exposure us suspected. -------- --------- Reactive >/=1:1 Non Nontreponemal antibodies Reactive detected. Syphilis unlikely; biological false positive possible. Retest in 2-4 weeks if recent exposure is suspected. -------- --------- Reactive >/=1:1 Reactive Treponemal and nontreponemal antibodies detected. Consistent with past or current (potential early) syphilis. 12 Panel Urine Drug Screen Reviewed date:11/10/2024 01:29:57 PM Interpretation: Performing Lab: Notes/Report: THC neg MCKAY neg MOP (OPI) neg AMP neg MET neg BAR neg BZO neg MDMA neg MTD neg OXY neg PCP neg BUP POS 14 Panel Urine Drug Screen Reviewed date:02/13/2025 02:16:22 PM Interpretation: Performing Lab: Notes/Report: THC POS MCKAY POS MOP (OPI) neg AMP POS MET POS BAR neg BZO neg MDMA neg MTD neg OXY neg PCP neg BUP POS TCA neg FTY neg 14 Panel Urine Drug Screen Reviewed date:04/08/2025 09:33:27 AM Interpretation: Performing Lab: Notes/Report: THC neg MCKAY neg MOP (OPI) neg AMP neg MET neg BAR neg BZO neg MDMA neg MTD neg OXY neg PCP neg BUP pos TCA neg FTY neg CBC With Differential/Platel et* Reviewed date:04/08/2025 09:33:27 AM Interpretation: Performing Lab:[facility], [address] [facility], Phone - [phone], Director - [facility] Notes/Report: WBC 10.0 3.4-10.8 x10E3/uL RBC 4.44 4.14-5.80 x10E6/uL Hemoglobin 14.3 13.0-17.7 g/dL Hematocrit 43.8 37.5-51.0 % MCV 99 79-97 fL MCH 32.2 26.6-33.0 pg MCHC 32.6 31.5-35.7 g/dL RDW 12.8 11.6-15.4 % Platelets 354 150-450 x10E3/uL Neutrophils 51 Not Estab. % Lymphs 39 Not Estab. % Monocytes 7 Not Estab. % Eos 2 Not Estab. % Basos 1 Not Estab. % Neutrophils (Absolute) 5.0 1.4-7.0 x10E3/uL Lymphs (Absolute) 3.9 0.7-3.1 x10E3/uL Monocytes(Absolute) 0.7 0.1-0.9 x10E3/uL Eos (Absolute) 0.2 0.0-0.4 x10E3/uL Baso (Absolute) 0.1 0.0-0.2 x10E3/uL Immature Granulocytes 0 Not Estab. % Immature Grans (Abs) 0.0 0.0-0.1 x10E3/uL CMP 14 Comprehensive Metabol ic Panel* Reviewed date:04/08/2025 09:33:27 AM Interpretation: Performing Lab:[facility], [address] [facility], Phone - [phone], Director - [facility] Notes/Report: Glucose 71 70-99 mg/dL BUN 15 6-20 mg/dL Creatinine 0.90 0.76-1.27 mg/dL eGFR 119 >59 mL/min/1.73 BUN/Creatinine Ratio 17 9-20 Sodium 139 134-144 mmol/L Potassium 4.3 3.5-5.2 mmol/L Chloride 99 96-106 mmol/L Carbon Dioxide, Total 24 20-29 mmol/L Calcium 9.6 8.7-10.2 mg/dL Protein, Total 6.9 6.0-8.5 g/dL Albumin 4.4 4.3-5.2 g/dL Globulin, Total 2.5 1.5-4.5 g/dL Bilirubin, Total 0.2 0.0-1.2 mg/dL Alkaline Phosphatase 73 47-123 IU/L AST (SGOT) 18 0-40 IU/L ALT (SGPT) 19 0-44 IU/L QuantiFERON-TB Gold Plus (18 [id number]) Reviewed date:04/08/2025 09:33:27 AM Interpretation: Performing Lab:[facility] [address] [facility], Phone - [phone], Director - Perez Notes/Report: QuantiFERON Incubation Incubation performed. QuantiFERON-TB Gold Plus Negative Negative No response to M tuberculosis antigens detected. Infection with M tuberculosis is unlikely, but high risk individuals should be considered for additional testing (ATS/IDSA/CDC Clinical Practice Guidelines, 2017). The reference range is an Antigen minus Nil result of <0.35 IU/mL. Chemiluminescence immunoassay methodology QuantiFERON Criteria QuantiFERON-TB Gold Plus is a qualitative indirect test for M tuberculosis infection (including disease) and is intended for use in conjunction with risk assessment, radiography, and other medical and diagnostic evaluations. The QuantiFERON-TB Gold Plus result is determined by subtracting the Nil value from either TB antigen (Ag) value. The Mitogen tube serves as a control for the test. QuantiFERON TB1 Ag Value 0.08 QuantiFERON TB2 Ag Value 0.08 QuantiFERON Nil Value 0.01 QuantiFERON Mitogen Value >10.00 Breathalyzer Reviewed date:04/08/2025 09:33:27 AM Interpretation: Performing Lab: Notes/Report: SIVA 0.000 PDF Report Reviewed date:03/03/2025 09:10:01 AM Interpretation: Performing Lab:[facility], [address] [place] [address], Phone - [phone], Director - Chyna Notes/Report: PDF Report1 [facility] Comprehensive Drug Analysis, Urine Reviewed date:03/03/2025 09:09:54 AM Interpretation: Performing Lab:[facility], [address] [place] [address], Phone - [phone], Director Jessa PoncemDMiguel Ángel Notes/Report: Summary Report (Summary) FINAL COMPREHENSIVE DRUG ANALYSIS,UR Test Result Flag Units Drug Present Methamphetamine >1344 ng/mg creat Amphetamine 2570 ng/mg creat Sources of methamphetamine include illicit sources, as a scheduled prescription medication, as a metabolite of some prescription drugs, or use of an l-methamphetamine inhaler. Amphetamine is an expected metabolite of methamphetamine. Amphetamine is also available as a schedule II prescription drug. Benzoylecgonine 230 ng/mg creat Benzoylecgonine is a metabolite of cocaine; its presence indicates use of this drug. Source is most commonly illicit, but cocaine is present in some topical anesthetic solutions. Alcohol, Ethyl 0.020 g/dL Sources of ethyl alcohol include alcoholic beverages or as a fermentation product of glucose; glucose was not detected in this specimen. Ethyl alcohol result should be interpreted in the context of all available clinical and behavioral information. Buprenorphine >269 ng/mg creat Norbuprenorphine >269 ng/mg creat Source of buprenorphine is a scheduled prescription medication. Norbuprenorphine is an expected metabolite of buprenorphine. Test Result Flag Units Ref Range Creatinine 372 mg/dL >=20 For clinical consultation, please call . PDF . 14 Panel Urine Drug Screen Reviewed date:02/25/2025 03:51:37 PM Interpretation: Performing Lab: Notes/Report: THC POS MCKAY POS MOP (OPI) neg AMP POS MET POS BAR neg BZO neg MDMA POS MTD neg OXY neg PCP neg BUP POS TCA neg FTY POS 12 Panel Urine Drug Screen Reviewed date:11/24/2024 02:07:02 PM Interpretation: Performing Lab: Notes/Report: THC neg MCKAY POS MOP (OPI) neg AMP neg MET neg BAR neg BZO neg MDMA neg MTD neg OXY neg PCP neg BUP POS 14 Panel Urine Drug Screen Reviewed date:12/25/2024 10:44:05 AM Interpretation: Performing Lab: Notes/Report: THC neg MCKAY neg MOP (OPI) neg AMP neg MET neg BAR neg BZO neg MDMA neg MTD neg OXY neg PCP neg BUP POS TCA neg FTY neg Medication Assisted Treatmen t (MAT) Buprenorphine, Norbuprenorphine, and Naloxone MS Confirmation, Urine Reviewed date:12/30/2024 09:38:49 AM Interpretation: Performing Lab:[facility], [address] [place] [address], Phone - [phone], Director - Chyna Notes/Report: ToxAssure, [facility] FLEX or MAT drug testing - Technical component - Result certification performed at [address], [address]. [phone].Supervisor Production Managing Asha Forbes MD. Creatinine 220 >=20 mg/dL REFERENCE RANGE : Ref Range>=20 BUPRENORPHINE ++POSITIVE++ Buprenorphine 176 Norbuprenorphine >455 N/B Ratio >2.58 >=0.3 OPIATE ANTAGONIST ++POSITIVE++ Naloxone 384 Testing Threshold: buprenorphine, 1.0 ng/mL norbuprenorphine, 5.0 ng/mL naloxone, 10 ng/mL This test was developed and its performance characteristics determined by [facility]. It has not been cleared or approved by the Food and Drug Administration. 14 Panel Urine Drug Screen Reviewed date:01/23/2025 03:39:59 PM Interpretation: Performing Lab: Notes/Report: THC POS MCKAY POS MOP (OPI) neg AMP POS MET POS BAR neg BZO neg MDMA POS MTD neg OXY neg PCP neg BUP POS TCA neg FTY neg Reason For Referral No Information Medications Medication SIG (Take, Route, Frequency, Duration) Notes Start Date End Date Status Melatonin 5 MG 1 tablet at bedtime as needed Orally Once a day; Duration: 30 days 04/06/2025 Active Ondansetron HCl 4 MG 1 tablet Orally every 8 hours As needed for nausea 04/06/2025 Active Nicotine Polacrilex 4 MG 1 lozenge as needed for nicotine cravings Mouth/Throat Up to once per hour (maximum of 15 lozenges per day); Duration: 7 days 04/06/2025 Active Azithromycin 250 MG two tablets on day one, then 1 tablet for the next 4 days Orally daily; Duration: 5 days 04/28/2025 Active traZODone HCl 50 MG 1-2 tablet at [...] Once a day; Duration: 30 days Active Mupirocin 2 % 1 application Externally 3 times a day; Duration: 10 days 04/09/2025 Active hydrOXYzine Pamoate 25 MG 1-2 capsules Orally every 4 hours as needed for anxiety, agitation, or inability to sleep. Do not give within 4 hours of diphenhydramine.; Duration: 30 days 04/06/2025 Active Chlorhexidine Gluconate 0.12 % 15 mL swish for 30 seconds, then spit. Do not swallow. Mouth/Throat Twice a day; Duration: 30 day(s) 04/28/2025 Active Gabapentin 300 MG 1 capsule in the morning per pt request Orally Once a day; Duration: 30 days Active Naproxen 250 MG 1 tablet with food o r milk as needed Orally every 12 hrs; Duration: 30 days 04/23/2025 Active Penicillin G Benzathine 2932561 UNIT as directed Intramuscular weekly; Duration: 1 days 04/06/2025 Active Daily-Angelica - TAKE 1 TABLET BY ABI TH DAILY; Duration: 30 Active Nicotine 21 MG/24HR 1 patch to skin. Transdermal Once a day, removing at bedtime; Duration: 28 days 04/06/2025 Active valACYclovir HCl 500 MG 1 tablet Orally twice a day; Duration: 10 days 04/09/2025 Active MiraLax 17 GM/SCOOP 1 capful Orally anibal y; Duration: 30 days 05/06/2025 Active Carbamide Peroxide 6.5 % 5 drops into affected ear Otic Twice a day; Duration: 4 days 04/06/2025 Active Buprenorphine HCl-Naloxone HCl 8-2 MG 1 film under the tongue and allow to dissolve Sublingual 4 times a day; Duration: 14 days 05/06/2025 Active Social History Tobacco Use: Social History Observation Description Date Details (start date - stop date) Unknown Sex Assigned At : Social History Observation Description Sex Assigned At Male PRAPARE Question Answer Notes Date Completed/Updated: 04/06/2025 What is your current housing situation? I do not have housing (staying with others, in a hotel, in a fci, living outside on the street, on a beach, or in a park) Are you worried about losing your housing? Yes What is the highest level of school that you have finished? 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 Check all that apply I do not have problems meeting my needs Has lack of transportation k ept you from medical appointments, meetings, work or from getting things needed for daily living? Yes, it has kept me from non-medical meetings, appointments, work, or getting things needed for daily living How often do you see or talk to people that you care about and feel close to? (For example: talking to friends on the phone, visiting friends or family, going to judaism or club meetings) More than 5 times a week How stressed are you? Stress is when someone feels tense, nervous, anxious, or can\t sleep at night because their mind is troubled Very much In the past year have you sp ent more than 2 nights in a row in a longterm, longterm, assisted center, or juvenile correctional facility? Yes What was your release date? 03/19/2024 Are you a refugee? I choose not to answer this q uestion Do you feel physically and e motionally safe where you currently live? Yes In the past year, have you b een afraid of your partner or ex-partner? Yes PRAPARE Score: 11 Enabling Services Provided? Yes Please specify Case Management Follow-up Tobacco Control (Standard) Question Answer Notes Tobacco use: Uses tobacco in other forms Additional Findings: Tobacco user e-cigarette Section Notes: Gambling: Frequent gambling, spends large amounts on slot machines Living situation: Transitioning from longterm to treatment setting, may go to sober living Living situation: Currently homeless, staying with father who uses methamphetamine Gambling: Frequent gambling, spends large amounts on slot machines Living situation: Transitioning from longterm to treatment setting, may go to sober living Gambling: Frequent gambling, spends large amounts on slot machines Living situation: Transitioning from longterm to treatment setting, may go to sober living Gambling: Frequent gambling, spends large amounts on slot machines Living situation: Transitioning from longterm to treatment setting, may go to sober living Gambling: Frequent gambling, spends large amounts on slot machines Living situation: Transitioning from longterm to treatment setting, may go to sober living Gambling: Frequent gambling, spends large amounts on slot machines Living situation: Transitioning from longterm to treatment setting, may go to sober living Gambling: Frequent gambling, spends large amounts on slot machines Living situation: Transitioning from longterm to treatment setting, may go to sober living Living situation: Currently homeless, staying with father who uses methamphetamine Gambling: Frequent gambling, spends large amounts on slot machines Living situation: Transitioning from longterm to treatment setting, may go to sober living Gambling: Frequent gambling, spends large amounts on slot machines Living situation: Transitioning from longterm to treatment setting, may go to sober living Gambling: Frequent gambling, spends large amounts on slot machines Living situation: Transitioning from longterm to treatment setting, may go to sober living Problems Problem Type SNOMED Code ICD Code Onset Dates Problem Status W/U Status Risk Notes Problem Schizoaffective disorder (95222298) Schizoaffective disorder, unspecified (F25.9) Active confirmed Problem Insomnia (192307919) Insomnia due to medical condition (G47.01) Active confirmed Problem Constipation (26044815) Constipation, unspecified (K59.00) Active confirmed Problem Auditory hallucinations (71916725) Auditory hallucinations (R44.0) Active confirmed Problem Substance abuse (3229353531) Substance abuse (F19.10) Active confirmed Problem Overweight (328202413) Over weight (E66.3) Active confirmed Problem Methamphetamine abuse (372703594) Methamphetamine abuse (F15.10) Active confirmed Problem Cold sore (3378912) Cold sore (B00.1) Active confirmed Problem Mental health disorder (69591722) Mental health disorder (F99) Active confirmed Problem Posttraumatic stress disorder (24531877) Post traumatic stress disorder (PTSD) (F43.10) Active confirmed Problem Physical examination, complete (89288422) Adult general medical examination (Z00.00) Active confirmed Problem Opioid use disorder (0540785532) Opioid use disorder (F11.99) Active confirmed Problem Tobacco user (787034648) Nicotine dependence with current use (F17.200) Active confirmed Problem Latent syphilis (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 Problem Late effect of fracture of spine AND/OR trunk without spinal cord lesion (1188609) Compression fracture of L1 vertebra, sequela (S32.010S) Active confirmed Problem Sciatica (91871433) Sciatic pain, left (M54.32) Active confirmed Vital Signs Heart Rate 81 /min 05/11/2025 Temperature 98.6 degrees Fahrenheit 05/11/2025 Respiratory Rate 18 /min 05/11/2025 Oximetry 97 % 05/11/2025 Blood pressure diastolic 58 mm Hg 05/11/2025 Height 68 in 05/11/2025 Blood pressure systolic 102 mm Hg 05/11/2025 Weight 185.6 lbs 05/11/2025 BMI 28.22 kg/m2 05/11/2025 Encounters Encounter Location Date Provider Diagnosis [facility] [address] [place] [address] 11/04/2024 Christelle Galdamez [address] [place] [address] 11/10/2024 Lacy Woodall Syphilis A53.9 [facility] [address] [place] [address] 11/17/2024 Lacy Woodall [address] [place] [address] 11/27/2024 Kashmir Benoit [facility] [address] [place] [address] 02/10/2025 Kashmir Benoit [address] [place] [address] 03/10/2025 Kashmir Benoit [facility] [address] [place] [address] 04/06/2025 Ernesto Jaime [facility] [address], [place] [address] 04/14/2025 Bertha Bolton [facility] [address] [place] [address] 04/20/2025 Bertha Bolton Schizoaffective disorder, unspecified F25.9 [facility] [address], [place] [address] 04/30/2025 Bertha Bolton [facility] [address] [place] [address] 04/13/2025 Ernesto Jaime Latent syphilis in male A53.0 [facility] [address] [place] [address] 04/20/2025 Ernesto Jaime [address] [facility] [place] [address] 11/21/2024 Lacy Maysco Syphilis A53.9 [facility] [address] [place] [address] 04/06/2025 Ernesto Jaime Latent syphilis in male A53.[address] [place] [address] 04/13/2025 Bertha Bolton Schizoaffective disorder, unspecified F25.9 ; Post traumatic stress disorder (PTSD) F43.10 and Opioid use disorder F11.99 [facility] [place] [address] 05/11/2025 Bertha Bolton Schizoaffective disorder, unspecified F25.9 ; Post traumatic stress disorder (PTSD) F43.10 ; Opioid use disorder F11.99 ; Insomnia due to medical condition G47.01 and Over weight E66.3 [facility] [address] [place] [address] 04/23/2025 Ernesto Jaime Sciatic pain, left M54.32 ; Compression fracture of L1 vertebra, sequela S32.010S and Over weight E66.3 [address] [place] [address] 04/28/2025 Ernesto Jaime Dental abscess K04.7 ; Nausea R11.0 ; Over weight E66.3 and Sciatic pain, left M54.32 [address] [place] [facility] [facility] [place] [address] 04/09/2025 Ernesto Jaime Adult general medica l examination Z00.00 ; Cold sore B00.1 ; Folliculitis barbae L73.8 ; Compression fracture of L1 vertebra, sequela S32.010S ; Sciatic pain, left M54.32 ; Auditory hallucinations R44.0 and Latent syphilis in male A53.0 [facility] [place] [address] 04/22/2025 Christelle Galdamez Over weight E66.3 ; Opioid use disorder F11.99 ; Constipation, unspecified K59.00 and Nicotine dependence with current use F17.200 [address] [place] [address] 05/06/2025 Christelle Galdamez Over weight E66.3 ; Opioid use disorder F11.99 and Nicotine dependence with current use F17.200 [address] [place] [address] 04/08/2025 Christelle Galdamez Opioid use disorder F11.99 and Nicotine dependence with current use F17.200 [facility] [address] [place] [address] 10/28/2024 Elishamonique Espinowilber Opioid use disorder F11.99 and Nicotine dependence with current use F17.200 [facility] [address] [place] [address] 04/06/2025 Ernesto Bauder Opioid use disorder F11.99 ; Adult general medical examination Z00.00 ; Nicotine dependence with current use F17.200 ; Latent syphilis in male A53.0 ; Methamphetamine abuse F15.10 ; Cerumen impaction H61.20 and Nausea & vomiting R11.[address] [address] 04/30/2025 Bertha Bolton Schizoaffective disorder, unspecified F25.9 ; Post traumatic stress disorder (PTSD) F43.10 ; Opioid use disorder F11.99 and Insomnia due to medical condition G47.[address] [address] 11/24/2024 Lacy Tanwangco Opioid use disorder F11.99 and Nicotine dependence with current use F17.[address] [place] [address] 12/25/2024 Camelia Szlufik Opioid use disorder F11.[address] [address] 01/23/2025 Lacy Tanwangco Opioid use disorder F11.99 and Nicotine dependence with current use F17.[address] [place] [address] 02/13/2025 Benito Jones Opioid use disorder F11.99 and Latent syphilis in male A53.[address] [place] [address] 02/25/2025 Camelia Szlufik Opioid use disorder F11.99 and Methamphetamine abuse F15.[address] [address] 11/10/2024 Lacy Woodall Opioid use disorder F11.99 and Nicotine dependence with current use F17.200 [facility] [place] [address] 04/06/2025 Radha Becker Mental health disord er F99 and Substance abuse F19.10 Assessments Encounter Date Diagnosis (ICD Code) Assessment Notes Treatment Notes Treatment Clinical Notes Section Notes 04/06/2025 Adult general medical examination (ICD-10 - Z00.00) Admit to the Mental Health/Crisis Residential Unit and initiate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
--- OUTSIDE RECORDS SUMMARY | 2025-05-14 21:14 | XMS_ITS | Clinical Summary ---
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
== END 2025-05-14 18:16 | disposition home or self-care (01) ==
LOC: ANHED 18:00
PROVIDERS: Student in an Organized Health Care Education/Training Program; Emergency Provider Student in an Organized Health Care Education/Training Program
DX: R07.81 Pleurodynia (principal); F17.290 Nicotine dependence, other tobacco product, uncomplicated
CPT/HCPCS: 36415; 71046; 80053; 83690; 84484; 85025; 85610; 85730; 93005; 96374; 99284; A9270; J1885